=== PATIENT | male | born 1995 | race Caucasian/White ===

== ENCOUNTER 2017-10-22 00:37 | Emergency (ER) | payer OTHER ==
[~2017-10-22] VITALS: Ht 177.8 cm; Wt 77.1 kg
[2017-10-22 00:40] VITALS: BP_SYST 133
[2017-10-22] MEDS ORDERED: BACITRACIN 1 GM OINT TP ONE (00:45)
[2017-10-22] MEDS ORDERED: LIDOCAINE/EPI 1% 1:100000 20 ML VIAL IJ ONE (00:45)
[2017-10-22] MEDS ORDERED: DIPH-TET-PERTUS Vaccine 0.5 ML VIAL (ADACEL) IM ONE (00:45)
== END 2017-10-22 01:15 | disposition home or self-care (01) ==
LOC: SED 00:37
DX: S01.511A Laceration without foreign body of lip, initial encounter (principal); W22.8XXA Striking against or struck by other objects, initial encounter; Y93.89 Activity, other specified; Y92.89 Other specified places as the place of occurrence of the external cause; Y99.8 Other external cause status
CPT/HCPCS: 90715; 99283